=== PATIENT | female | born 2000 | race Two or more races ===

== ENCOUNTER 2020-03-24 17:22 | Emergency (ER) | payer OTHER ==
[~2020-03-24] VITALS: Ht 154.9 cm; Wt 58.9 kg
[2020-03-24] MEDS ORDERED: NS 1,000 ML IV ONE (17:45)
[2020-03-24 18:22] LABS: BASO % 0.5 % (0.0-1.0); EOS # 0.1 10^3/uL (0.0-0.5); HEMATOCRIT 38.7 % (36.0-47.0); HEMOGLOBIN 12.3 g/dl (12.0-15.5); LYMPH # 1.3 10^3/uL (1.5-5.0); LYMPH % 20.7 % (24.0-44.0); MEAN CORPUSCULAR HEMOGLOBIN 29.4 pg (27.0-33.0); MEAN CORPUSCULAR HGB CONC 31.8 g/dl (32.0-36.5); MEAN CORPUSCULAR VOLUME 92.6 fl (80.0-96.0); MONO # 0.5 10^3/uL (0.0-0.8); MONO % 7.1 % (0.0-5.0); NEUTROPHILS # 4.5 10^3/uL (1.5-8.5); NEUTROPHILS % 69.5 % (36.0-66.0); PLATELET COUNT, AUTOMATED 281 10^3/uL (150-450); RED BLOOD COUNT 4.18 10^6/uL (4.00-5.40); WHITE BLOOD COUNT 6.5 10^3/uL (4.0-10.0)
[2020-03-24 19:09] LABS: ALBUMIN 3.6 GM/DL (3.2-5.2); BILIRUBIN,DIRECT 0.1 MG/DL (0.0-0.2); BILIRUBIN,TOTAL 0.5 MG/DL (0.2-1.0); TOTAL PROTEIN 7.7 GM/DL (6.4-8.2)
[2020-03-24] MEDS ORDERED: MIRA3350 PO (19:45)
[2020-03-24] MEDS ORDERED: MIRALAX *UNIT DOSE* 17GM PACKET PO STA (19:47)
[2020-03-24 20:01] VITALS: BP 106/54
== END 2020-03-24 20:03 | disposition home or self-care (01) ==
LOC: M ED 17:22
DX: O99.891 Other specified diseases and conditions complicating pregnancy (principal); K62.5 Hemorrhage of anus and rectum; O99.611 Diseases of the digestive system complicating pregnancy, first trimester; K59.00 Constipation, unspecified; Z3A.01 Less than 8 weeks gestation of pregnancy

== ENCOUNTER 2020-10-30 06:18 | Outpatient (CLI) | payer OTHER ==
[~2020-10-30] VITALS: Ht 154.9 cm; Wt 72.3 kg
[~2020-10-30 06:18] MED LIST: MIRA3350 PO
[2020-10-30 06:33] VITALS: BP 97/50
[2020-10-30] MEDS ORDERED: LR 1,000 ML IV ONE (07:10)
--- NOTE | 2020-10-30 07:18 | IPNPDOC ---
Text Note Date of Service The patient was seen on 10/30/20. NOTE 10/30/2020 PATIENT COMPLAINT OF CONTRACTIONS ALL NIGHT TYLENOL NOT HELPING NO BLEEDING NO DISCHARGE . PATIENT AT 36.4 WEEKS HAD GBS CULTURE YESTERDAY. RISK FACTORS HSV ON MEDS ANEMIA EXAMINATION AND PLAN CATEGORY 1 STRIP NO DECELERATIONS MODERATE VARIABILITY BASELINE NORMAL . CERVIX POSTERIOR 1 CM -3 STATION VERTEX . PLAN HYDRATE ,URINE FOR MICRO REGULAR DIET DISCHARGE EXPRESSED UNDERSTANDING PLAN OF CARE VS,Fishbone, I+O VS, Fishbone, I+O Vital Signs Date Time Temp Pulse Resp B/P (MAP) Pulse Ox O2 Delivery O2 Flow Rate FiO2 10/30/20 06:33 97.8 88 16 97/50 (66) Jakub Valero MD Oct 30, 2020 07:17
[2020-10-30] MEDS ORDERED: ACETAMINOPHEN 500 MG TAB PO ONE (07:50)
[2020-10-30] MEDS ORDERED: LR 1,000 ML IV SCH (08:00)
[2020-10-30 08:53] LABS: BACTERIA, URINE AUTO 2+ (NEGATIVE); RBC, URINE AUTO 0 /HPF (0-3); SQUAMOUS EPITHELIAL CELL UR AU 1 /HPF (0-6); WBC, URINE AUTO 2 /HPF (0-3)
[2020-10-30 09:38] LABS: APPEARANCE, URINE CLEAR (CLEAR); BACTERIA, URINE AUTO 1+ (NEGATIVE); BILIRUBIN, URINE AUTO NEGATIVE (NEGATIVE); BLOOD, URINE BLOOD NEGATIVE (NEGATIVE); COLOR, URINE STRAW (YELLOW); GLUCOSE, URINE (UA) AUTO NEGATIVE (NEGATIVE); KETONE, URINE AUTO TRACE mg/dL (NEGATIVE); LEUKOCYTE ESTERASE, URINE AUTO NEGATIVE (NEGATIVE); NITRITE, URINE AUTO NEGATIVE (NEGATIVE); PROTEIN, URINE AUTO NEGATIVE (NEGATIVE); RBC, URINE AUTO 0 /HPF (0-3); SPECIFIC GRAVITY URINE AUTO 1.005 (1.002-1.035); SQUAMOUS EPITHELIAL CELL UR AU 1 /HPF (0-6); UROBILINOGEN, URINE AUTO 0.2 mg/dL (0.0-2.0); WBC, URINE AUTO 2 /HPF (0-3)
== END 2020-10-30 10:23 | disposition home or self-care (01) ==
LOC: M LDO 06:18
PROVIDERS: ATTEND Obstetrics & Gynecology
DX: O26.893 Other specified pregnancy related conditions, third trimester (principal); Z3A.36 36 weeks gestation of pregnancy; R25.2 Cramp and spasm; O99.013 Anemia complicating pregnancy, third trimester; D64.9 Anemia, unspecified; O98.513 Other viral diseases complicating pregnancy, third trimester; B00.9 Herpesviral infection, unspecified
CPT/HCPCS: 59025; 81001; 81015; G0378; G0463

== ENCOUNTER 2020-11-20 02:31 | Outpatient (CLI) | payer OTHER ==
[~2020-11-20] VITALS: Ht 154.9 cm; Wt 73.6 kg
[2020-11-20 02:54] VITALS: BP 103/69
[2020-11-20] MEDS ORDERED: PRENTAB9 PO (02:59)
[2020-11-20] MEDS ORDERED: VALT1TAB PO (02:59)
[2020-11-20] MEDS ORDERED: IRON65TA2 PO (02:59)
[2020-11-20] MEDS ORDERED: VITA100T59 PO (02:59)
== END 2020-11-20 03:40 | disposition home or self-care (01) ==
LOC: M LDO 02:31
PROVIDERS: ATTEND Obstetrics & Gynecology Reproductive Endocrinology
DX: O47.1 False labor at or after 37 completed weeks of gestation (principal); Z3A.39 39 weeks gestation of pregnancy; Z79.899 Other long term (current) drug therapy
CPT/HCPCS: 59025; G0378; G0463

== ENCOUNTER 2020-11-21 03:58 | Inpatient (IN) | payer OTHER ==
[2020-11-21] VITALS (37 sets, daily range): BP systolic 89–134; BP diastolic 43–77
[~2020-11-21] VITALS: Ht 154.9 cm; Wt 72.1 kg
[~2020-11-21 03:58] MED LIST changes: +IRON65TA2 PO; +PRENTAB9 PO; +VALT1TAB PO; +VITA100T59 PO
[2020-11-21] MEDS ORDERED: BICITRA 30ML SOLN UDC PO SCH (06:00)
[2020-11-21] MEDS ORDERED: LACTATED RINGER'S 1000 ML IV STA (06:26)
[2020-11-21] MEDS ORDERED: OXYTOCIN DRIP 30 UNITS in IV 1 EA IV PRN (06:30)
[2020-11-21] MEDS ORDERED: LR 1,000 ML IV SCH ×2 (06:30→18:30)
--- NOTE | 2020-11-21 06:47 | HPEPDOC ---
Obstetrical History & Physical General Date of Admission Nov 21, 2020 at 06:28 History of Present Illness 20 yo at 39+5 weeks gestation presented to L&D with the complaint of regul ar, painful contractions. She denies any vaginal bleeding or leakage of fluid. She endorses movement. 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 Surgical History: Tonsilectomy Family History Significant Family History: No pertinent family hx Social History Marital Status: Family situation: Spouse/partner home Psychosocial History: No pertinent psych hx * Smoker: non-smoker Alcohol: Denies Drugs: denies Imunizations Tdap status: current Influenza Status: needs Allergies Coded Allergies: No Known Allergies (Unverified , 03/24/20) Medications Scheduled Ascorbic Acid (Vitamin C) 100 Mg Tablet, 1 TAB PO DAILY Ferrous Sulfate (Iron) 325 Mg Tablet, 1 TAB PO DAILY No.137/Iron/Folic Acd ( Vitamin Tablet) 1 Each Tablet, 1 TAB PO DAILY Valacyclovir HCl (Valtrex) 1,000 Mg Tablet, 1 TAB PO BID Physical Examination Physical Examination GENERAL: Alert and oriented times three. ABDOMEN: Gravid and non-tender to touch. FETUS: Is vertex (VTX) by sterile vaginal examination (SVE) EXTREMITIES: No edema. No evidence of HSV lesions on exam. Laboratory Data Urine Culture: Urinary Tract Infection (staph aureus s/p treatment) Pertinent Laboratoy Data Blood Type: A+ RBC Antibody Screen: Negative HIV: Negative Hepatitis B: Negative Hepatitis C: Unknown Rapid Plasma Reagin: Nonreactive Rubella: Immune Varicella: Immune Chlamydia/Gonorrhea: Negative Group B Streptococcus: Negative Quad Screen Test: Negative Cystic Fibrosis: Negative Glucose Tolerance Test: 116 Anatomy Ultrasound Placenta Location: Anterior Normal Anatomy: Yes (EIF --> negative quad screen) Steroid Therapy Steroid Therapy: No Vaginal Examination Dilation: 4 cm Effacement: 80% Station: -2 Cervical Consistency: Soft Cervical Position: Middle Presentation: Cephalic presentation Position: Vertex (occiput) Assessment Heart Rate (FHR): 135 Variability: Moderate Accelerations: Positive Decelerations: None Tocometer Contractions: Yes Frequency: regular Assessment/Plan Assessment 20 yo at 39+5 weeks presented to L&D in labor. Plan Admit for expectant management of labor. Will augment as clinically indicated. No evidence of HSV lesions. Apply IV fluids. GBS negative. Clear liquid diet. Labs per L&D protocol. Patient may have epidural if desired. Anticipate . CASEY LOPEZ DO Nov 21, 2020 06:47
[2020-11-21 07:06] LABS: HEMATOCRIT 38.6 % (36.0-47.0); HEMOGLOBIN 12.8 g/dl (12.0-15.5); MEAN CORPUSCULAR HEMOGLOBIN 29.4 pg (27.0-33.0); MEAN CORPUSCULAR HGB CONC 33.2 g/dl (32.0-36.5); MEAN CORPUSCULAR VOLUME 88.7 fl (80.0-96.0); PLATELET COUNT, AUTOMATED 231 10^3/uL (150-450); RED BLOOD COUNT 4.35 10^6/uL (4.00-5.40); WHITE BLOOD COUNT 11.6 10^3/uL (4.0-10.0)
[2020-11-21] MEDS ORDERED: FENTANYL 2MCG/ML ROPIVACAINE 0.2% IN 0.9% NACL 100ML IVBAG As Ordered ONE (07:57)
--- NOTE | 2020-11-21 08:41 | IPNPDOC ---
Obstetrical Progress Note Date of Service Nov 21, 2020 Subjective To room for acceptance of care. Patient just had epidural. Objective Vital Signs Date Time Temp Pulse Resp B/P (MAP) Pulse Ox O2 Delivery O2 Flow Rate FiO2 11/21/20 08:22 98 111/57 (75) 11/21/20 07:04 96.7 16 Room Air Assessment Heart Rate (FHR): 135 Variability: Moderate Accelerations: Positive Decelerations: None Heart Rate Tracing: Category I Tocometer Contractions: Yes Frequency: regular Sterile Vaginal Examination Dilation: 5 cm Effacement (%): 70% Station: -2 Cervical Consistency: Soft Cervical Position: Middle Postion/Presentation: Cephalic presentation (by exam) Assessment and Plan Status: Reassuring Anticipate: Vaginal Delivery Additional Comments CAT I NST reactive, reassuring. Regular contractions. VS normal. Patient becoming more comfortable after epidural. SVE /-2 AROM meconium noted. KATHY GONZALEZ DO Nov 21, 2020 08:41
[2020-11-21] MEDS ORDERED: REFRIGERATOR IV KEYS XX PRN (08:45)
[2020-11-21] MEDS ORDERED: ePHEDrine SULFATE 25 MG/5 ML(5MG/ML) SYRINGE IV PRN (08:45)
[2020-11-21] MEDS ORDERED: EPIDURAL COMMENT XX SCH (08:45)
[2020-11-21] MEDS ORDERED: NALOXONE INJ 0.4MG/1ML VIAL (J2310 PER 1MG) IV PRN ×3 (08:45→17:40)
[2020-11-21] MEDS ORDERED: EPIDURAL/PCA KEYS XX PRN (08:45)
[2020-11-21] MEDS ORDERED: ONDANSETRON 4MG/2ML VIAL IV PRN ×3 (08:45→18:30)
[2020-11-21] MEDS ORDERED: LACTATED RINGER'S 1000 ML IV PRN (08:45)
[2020-11-21] MEDS ORDERED: diphenhydrAMINE 50MG/ML VIAL (J1200) IV PRN ×2 (08:45→17:40)
[2020-11-21] MEDS ORDERED: FENTANYL/ROPIVACAINE/NACL BAG 100 ML EPIDURAL SCH (08:45)
[2020-11-21] MEDS ORDERED: OXYTOCIN DRIP 30 UNITS in IV 1 EA IV SCH (13:35)
[2020-11-21] MEDS: LR 1,000 ML IV SCH (13:43)
--- NOTE | 2020-11-21 14:39 | IPNPDOC ---
Obstetrical Progress Note Date of Service Nov 21, 2020 Subjective To room at approx 1115 for deceleration, SVE /-2. FSE applied due to difficulty monitoring with repositioning. Repositioning resolved decel to CAT I NST reactive with regular contractions and moderate variability. Until 1415 when NST showed intermittent late decelerations, still with moderate variability. SVE performed /-1. Although CAT II at this time the NST is overall reassuring and the patient is progressing well towards . Will continue to closely monitor and perform intrauterine resuscitation. Objective Vital Signs Date Time Temp Pulse Resp B/P (MAP) Pulse Ox O2 Delivery O2 Flow Rate FiO2 11/21/20 12:42 86 102/58 (73) 11/21/20 11:02 96.9 16 Room Air KATHY GONZALEZ DO Nov 21, 2020 14:39
[2020-11-21] MEDS ORDERED: BICITRA 30ML SOLN UDC As Ordered ONE (17:19)
[2020-11-21] MEDS ORDERED: AZITHROMYCIN INJ 500 MG, VIAL MATE ADAPTER 1 EACH in NS 250 ML IV STA (17:19)
[2020-11-21] MEDS ORDERED: ceFAZolin SOD 2 GM in IV 1 EA IV STA (17:19)
[2020-11-21] MEDS ORDERED: ceFAZolin 2 GM/D5W 50 ML IV BAG (J0690 PER 500MG) As Ordered ONE (17:21)
[2020-11-21] MEDS ORDERED: AZITHROMYCIN INJ 500MG VIAL (J0456 PER 500MG) As Ordered ONE (17:23)
[2020-11-21] MEDS ORDERED: dexameTHASONE 4 MG/ML 1ML VIAL (J1100 PER 1MG) As Ordered ONE (17:30)
[2020-11-21] MEDS ORDERED: ONDANSETRON 4MG/2ML VIAL As Ordered ONE (17:30)
[2020-11-21] MEDS ORDERED: MORPHINE PRES-FREE INJ 10 MG/10 ML VIAL (J2274) As Ordered ONE (17:38)
[2020-11-21] MEDS ORDERED: METOCLOPRAMIDE INJ 10MG/2ML VIAL (J2765 PER 1) IV PRN (17:40)
[2020-11-21] MEDS ORDERED: NALBUPHINE HCL 10 MG/ML AMP (J2300) IV PRN (17:40)
[2020-11-21] MEDS ORDERED: OXYTOCIN INJ 10 UNITS/ML VIAL (J2590) As Ordered ONE (17:42)
[2020-11-21] MEDS ORDERED: PHENYLephrine 500MCG 5ML (100MCG/ML) SYRINGE As Ordered ONE (17:44)
[2020-11-21] MEDS ORDERED: SODIUM BICARBONATE 8.4% INJ 50MEQ 50 ML VIAL As Ordered ONE (17:46)
[2020-11-21] MEDS ORDERED: LIDOCAINE 2% W/EPINEPHRINE 20ML VIAL **PRES FREE As Ordered ONE (17:46)
[2020-11-21] MEDS ORDERED: OXYTOCIN 30 UNITS IN 0.9% NaCl 500ML IV BAG (J2590) As Ordered ONE ×2 (17:48→18:45)
[2020-11-21 17:49] LABS: CORD GAS ABE A -8.4; CORD GAS ABE V -8.6; CORD GAS HCO3 A 21.1 MEQ/L; CORD GAS HCO3 V 20.3 MEQ/L; CORD GAS O2 SAT A 48.8 %; CORD GAS O2 SAT V 68.7 %; CORD GAS PCO2 A 60.1 mmHg; CORD GAS PCO2 V 54.9 mmHg; CORD GAS PH A 7.164 UNITS; CORD GAS PH V 7.185 UNITS; CORD GAS PO2 A 23.7 mmHg; CORD GAS PO2 V 32.5 mmHg; CORD GAS SBC A 16.7 MEQ/L; CORD GAS TCO2 V 21.9 MEQ/L
--- NOTE | 2020-11-21 18:13 | REP ---
INDICATION: stat c/s no count done prior to proceeduee. COMPARISON: None. FINDINGS: KUB shows the intestinal gas pattern to be nonspecific. The organ silhouettes insofar as delineated are unremarkable. There is no evidence of free intraperitoneal air. There is significant artifact across the abdomen and pelvis obscuring the detail. IMPRESSION: Nonspecific. <Electronically signed by Terrence Desai > 11/21/20 1647
[2020-11-21] MEDS ORDERED: KETOROLAC 30 MG/ML 1ML VIAL IV PRN (18:30)
[2020-11-21] MEDS ORDERED: fentaNYL 100 MCG/2 ML INJECTION (J3010) IV PRN (18:30)
[2020-11-21] MEDS ORDERED: MEPERIDINE INJ 25 MG/ML VIAL (J2175) IV PRN (18:30)
[2020-11-21] MEDS ORDERED: ANUSOL HC CREAM 30GM TOP PRN (18:30)
[2020-11-21] MEDS ORDERED: oxyCODONE 5MG TAB PO PRN ×3 (18:30)
[2020-11-21] MEDS ORDERED: SIMETHICONE 80MG CHEW TAB PO PRN (18:30)
--- NOTE | 2020-11-21 18:51 | ROOPDOC ---
[facility] Report Of Operation Report of Operation DATE OF PROCEDURE: 11/21/20 PREPROCEDURE DIAGNOSES: 39+5 weeks gestation, spontaneous labor, category III heart rate tracing POSTPROCEDURE DIAGNOSES: delivered PROCEDURE: emergent primary delivery SURGEON: Andres Gonzalez DO ANIMAL TRAINER SUPERVISOR: Jakub Valero MD ANESTHESIA: epidural ESTIMATED BLOOD LOSS: 600 COMPLICATIONS: none REMARKS: none PROCEDURE NOTE: Ms. Metcalf is a 20yo at 39+5 who presented in spontaneous labor and required augmentation of active labor with Pitocin. She progressed to anterior lip and the heart rate began to deceleration to the 70s without return to baseline. Verbal consent was obtained witnessed by the patient's and mother and the patient was emergently taken to the OR. En route her epidural was dosed to a surgical level, 2g of ancef, 500mg azithromycin, and bicitra were administered. She was positioned supine with her arms out and a left tilt. The abdomen was splash prepped and draped in a sterile fashion. The anesthesia was tested to be adequate. A scalpel was used make a pfannensteil incision. The incision was carried to the fascia which was then scored and bluntly extended. The muscles were bluntly and the peritoneum entered bluntly. The lower uterine segment was identified and the bladder blade was placed. A transverse incision was made in the lower uterine segment and extended bluntly. The head was then elevated to the hysterotomy and the bladder blade removed. With the assistance of abdominal pressure the baby was delivered and had spontaneous movement and cry. The cord was clamped x2 and cut. The baby was then handed to the pediatrics team. Cord blood and gasses were obtained. The placenta was then delivered via manual extraction and was in-tact. The uterus was unable to be exteriorized and a bulbous posterior fundal area was appreciated. A Mobisu retractor was placed and remaining uterine debris swept from inside with a moist lap. The hysterotomy was then closed with 0-monocryl in a running locking fashion. A horizontal imbricating layer was then made with 0-monocryl. The uterus was firm. The gutters were then cleaned with a moist lap. The hysterotomy was re-inspected off tension and remained hemostatic. The Mobius retractor was removed. The muscles and fascia were inspected and were hemostatic. The peritoneum was reapproximated with 2-0 vicryl. The fascia was then re-approximated with 0-vicryl in a running fashion. It was palpated to have no defects on completion. The subcutaneous tissue was then irrigated. It was re-approximated with 2-0 vicryl in 1 running layer. The skin was then closed with 3-0 monocryl in a running fashion. Dermabond was used to dress the incision. The uterus was then swept of debris via a bimanual exam. The uterus was firm and bleeding scant. Due to the emergent nature of the procedure a beginning count was unable to be performed. X-ray of the abdomen revealed no evidence of retained surgical instruments. There were no complications. The patient tolerated the procedure well. START 1725 BABY 1726 END 1808 7#7, 3400g, 9/9 ANDRES GONZALEZ DO Nov 21, 2020 18:51
[2020-11-21] MEDS ORDERED: KETOROLAC 30 MG/ML 1ML VIAL As Ordered ONE (19:57)
[2020-11-21] MEDS: DOCUSATE SODIUM 100MG CAPSULE PO SCH (23:10)
[2020-11-22 02:00] VITALS: BP 123/68
[2020-11-22] MEDS: LR 1,000 ML IV SCH (02:53)
[2020-11-22] MEDS: ACETAMINOPHEN TAB 650MG DOSE (2X325MG) PO PRN ×2 (03:01→12:49)
[2020-11-22] MEDS: IBUPROFEN 800 MG TAB PO SCH ×3 (05:54→21:08)
[2020-11-22 06:00] VITALS: BP 120/57
--- NOTE | 2020-11-22 07:22 | IPNPDOC ---
Progress Note Date of Service: Nov 22, 2020 Day#: 1 Progress Note SUBJECT: Ms. Metcalf is a 20yo POD1 s/p emergent PLTCD for NRFHT. She has b een ambulating, voiding spontaneously without issue and tolerating regular diet. Breast feeding without issue. Reports lochia is [like a normal period]. Patient is ambulating well. [Reports some cramping with . Denies any pain. Passing flatus without difficulty. Her marie was removed and she is due to void. APC 1. HSV 1+2 without history of lesions 2. hx chlamydia 3. EIF 4. mild range blood pressures after delivery OBJECTIVE: VITAL SIGNS: Within normal limits, afebrile. Alert and oriented times three. No increased WOB Heart rate: non-tachy Abdomen: Fundus firm at U-2. Soft, NTTP. Pfannenstiel incision is clean dry and well approx with dermabond, no erythema or discharge Minimal lochia per patient ASSESSMENT: Ms. Metcalf is a 20yo POD1 s/p emergent PLTCD for NRFHT. Vitals within normal limits, afebrile, hemodynamically stable with no evidence of infection. she is due to void at 1100. PLAN: 1. Discharge to home likely tomorrow 2. Tylenol and Motrin for pain. Oxycodone for breakthrough. 3. Encourage breast feeding and ambulation. 4. undecided contraception, educated on risk of close interval 5. Routine PP visit in 2 and 6 weeks in clinic. 6. Discussed return precautions at length to include lifting restrictions and pelvic rest. 7. Due to void 1100. VS, I&O, 24H, Yordanbone Vital Signs/I&O Vital Signs Date Time Temp Pulse Resp B/P (MAP) Pulse Ox O2 Delivery O2 Flow Rate FiO2 11/22/20 06:00 97.5 70 16 120/57 (78) 98 Room Air I&O- Last 24 Hours up to 6 AM 11/22/20 06:00 Intake Total 1050 ml Output Total 2035 ml Balance -985 ml Laboratory Data 24H LABS Laboratory Tests 2 11/21/20 17:34: Cord Arterial Blood pH 7.164, Cord Arterial Blood PCO2 60.1, Cord Arterial Blood PO2 23.7, Cord Arterial Blood HCO3 21.1, Cord Arterial Blood Total CO2 23.0, Cord Arterial Blood Base Excess -8.4, Cord Arterial Base Excess (Standard 16.7, Cord Arterial Bld Oxygen Saturation 48.8, Cord Venous Blood pH 7.185, Cord Venous Blood PCO2 54.9, Cord Venous Blood PO2 32.5, Cord Venous Blood HCO3 20.3, Cord Venous Blood Total CO2 21.9, Cord Venous Base Excess (Actual) -8.6, Cord Venous Base Excess (Standard) 17.0, Cord Venous Blood Oxygen Saturation 68.7 KATHY GONZALEZ DO Nov 22, 2020 07:22
[2020-11-22] MEDS: DOCUSATE SODIUM 100MG CAPSULE PO SCH ×2 (09:28→21:08)
[2020-11-22] MEDS: PRENATAL VITAMINS CHEWABLE TABLET PO SCH (09:28)
[2020-11-22 10:00] VITALS: BP 108/60
[2020-11-22 14:00] VITALS: BP 117/63
[2020-11-22 18:00] VITALS: BP 112/56
[2020-11-22] MEDS: ACETAMINOPHEN 500 MG TAB PO PRN (20:19)
[2020-11-22 22:00] VITALS: BP 113/58
[2020-11-23 02:00] VITALS: BP 108/57
[2020-11-23] MEDS: IBUPROFEN 800 MG TAB PO SCH (05:56)
[2020-11-23 06:00] VITALS: BP 113/57
--- NOTE | 2020-11-23 08:02 | OBDS ---
[facility] Obstetrical Discharge Sum. Obstetrical Discharge Summary Date: Nov 23, 2020 Time: 08:00 : 1 Term: 1 Pre-term: 0 Abortions: 0 Livin VDRL: Non-Reactive Rh: Positive Rubella: Immune Sex: Male Weight: grams (3400) Anesthesia: Regional Anesthesia A/P, Post Course List any complications Admission diagnosis: Term Labor. Discharge diagnosis: Delivered via Primary Low Transverse . Condition at Discharge: Stable. Discharge Instructions: Home. Activity: As tolerated. Diet: Regular. Medications: Motrin, Tylenol, Oxycodone Follow-up: 2-week incision check & 6-week visit. Both will be at the [facility] Other: We will discuss contraception with you at the 6-week visit. SUBJECT: Ms. Metcalf is a 20yo who is current POD#2 s/p an emergent PLTCD for NRFHT. This morning, she reports that her pain is controlled; is is ambulating without difficulty; is voiding spontaneously; is passing flatus; and is tolerating a regular diet. She reports a decrease in her lochia and is breast feeding. She is considering an IUD versus Depo Provera for contraception. APC 1. HSV 1+2 without history of lesions 2. History of chlamydia 3. EIF 4. Mild range blood pressures following delivery OBJECTIVE: VITAL SIGNS: Within normal limits, afebrile. Gen: AAox3. Pulm: No increased WOB CV: Non-tachycardic Abdomen: Fundus firm at U-2. Soft, NTTP. Pfannenstiel incision is clean dry and well approx with Dermabond. ASSESSMENT: Mrs. Metcalf is a 20yo POD2 s/p an emergent PLTCD for NRFHT who is hemodynamically stable and doing well. The patient is ready for discharge, but would like her male circumcised prior to discharge. PLAN: 1. Discharge to home likely later this afternoon 2. Tylenol and Motrin for pain. Oxycodone for breakthrough. 3. Encouraged breast feeding and ambulation. 4. Undecided contraception, educated on risk of close interval 5. Incision check at the [facility] in 2-weeks. 6. Routine PP visit at the [facility] 6-weeks. 6. Discussed return precautions at length to include lifting restrictions and pelvic rest. Luisa Pepper., Ph.D. [facility] Staff Physician MILKA KRISHNAN M.D. Nov 23, 2020 08:02
[2020-11-23] MEDS ORDERED: ACET-683 PO (09:19)
[2020-11-23] MEDS: PRENATAL VITAMINS CHEWABLE TABLET PO SCH (11:16)
[2020-11-23] MEDS: DOCUSATE SODIUM 100MG CAPSULE PO SCH (11:16)
[2020-11-23] MEDS: ACETAMINOPHEN 500 MG TAB PO PRN (11:17)
--- NOTE | 2020-11-23 12:54 | IPN ---
PROGRESS NOTE DATE: 11/21/2020 SUBJECTIVE: This patient requested circumcision of their male infant. After discussing risks and benefits of circumcision, the medical and nonmedical indications, the penile block and aftercare, expressed understanding of penile block, aftercare and bleeding, signed the consent form. All questions were answered, 20 minute discussion. We await clearance by the paid search analyst.
== END 2020-11-23 12:40 | disposition home or self-care (01) | DRG 773 ==
LOC: M LDO 03:58 → M LDI 06:28 → M OBS 20:38
PROVIDERS: ADMIT Obstetrics & Gynecology; ATTEND Obstetrics & Gynecology
PROC: 10907ZC Drainage of Amniotic Fluid, Therapeutic from Products of Conception, Via Natural or Artificial Opening (ICD-10-PCS; 2020-11-21)
PROC: 10D00Z1 Extraction of Products of Conception, Low, Open Approach (ICD-10-PCS; principal; 2020-11-21 17:15)
DX: O98.32 Other infections with a predominantly sexual mode of transmission complicating childbirth (principal); A60.09 Herpesviral infection of other urogenital tract; Z3A.39 39 weeks gestation of pregnancy; O76 Abnormality in fetal heart rate and rhythm complicating labor and delivery; Z37.0 Single live birth

== ENCOUNTER 2021-02-12 15:48 | Emergency (ER) | payer OTHER ==
[~2021-02-12] VITALS: Ht 154.9 cm; Wt 58.5 kg
[~2021-02-12 15:48] MED LIST changes: +ACET-683 PO
[2021-02-12 18:00] LABS: BASO % 0.7 % (0.0-1.0); EOS # 0.4 10^3/uL (0.0-0.5); EOS % 6.9 % (0.0-3.0); HEMATOCRIT 38.2 % (36.0-47.0); HEMOGLOBIN 12.6 g/dl (12.0-15.5); LYMPH # 1.7 10^3/uL (1.5-5.0); LYMPH % 30.1 % (24.0-44.0); MEAN CORPUSCULAR HEMOGLOBIN 29.3 pg (27.0-33.0); MEAN CORPUSCULAR VOLUME 88.8 fl (80.0-96.0); MONO # 0.4 10^3/uL (0.0-0.8); MONO % 6.5 % (2.0-8.0); NEUTROPHILS # 3.1 10^3/uL (1.5-8.5); NEUTROPHILS % 55.4 % (36.0-66.0); PLATELET COUNT, AUTOMATED 358 10^3/uL (150-450); WHITE BLOOD COUNT 5.7 10^3/uL (4.0-10.0)
[2021-02-12 18:48] LABS: ERYTHROCYTE SEDIMENTATION RATE 45 mm/hr (0-20)
[2021-02-12 19:27] VITALS: BP 116/77
--- NOTE | 2021-02-13 08:54 | REP ---
INDICATION: Palpable area COMPARISON: None TECHNIQUE: As above FINDINGS: There are no cystic or solid masses. IMPRESSION: This examination has just been brought to my attention today at this time and shows no abnormality. <Electronically signed by Terrence Desai > 02/13/21 [id number]
== END 2021-02-12 19:30 | disposition home or self-care (01) ==
LOC: M ED 15:48
DX: N63.11 Unspecified lump in the right breast, upper outer quadrant (principal); R50.9 Fever, unspecified